=== PATIENT | female | born 1935 | race Caucasian/White ===

== ENCOUNTER 2019-10-05 08:51 | Day surgery (SDC) | payer MEDICARE ==
[~2019-10-05 08:51] MED LIST: Acetaminophen TAB* 325 MG PO PRN
[2019-10-05] MEDS ORDERED: Propofol* 10 MG/ML 20 ML BTL ONE (09:21)
[2019-10-05 10:36] VITALS: BP 144/76
[2019-10-05] MEDS ORDERED: acetaZOLAMIDE TAB* 250 MG ONE (11:09)
[2019-10-05] MEDS ORDERED: Neomycin/Polymy/Dex OPHTH.OIN* 3.5 GM ONE (11:09)
[2019-10-05] MEDS ORDERED: Tropicamide 1% OPTH.SOL* BTL ONE (11:09)
[2019-10-05] MEDS ORDERED: Phenylephrine OPHTH SOL 2.5%* 2 ML ONE (11:09)
[2019-10-05] MEDS ORDERED: Tetracaine 0.5% OPTH.SOL 4 ML* 1 DROP BTL ONE (11:09)
[2019-10-05] MEDS ORDERED: Cyclopentolate 1% OPTH.SOL* 2 ML BTL ONE (11:09)
[2019-10-05] MEDS ORDERED: Lidocaine 1% MPF ** 5 ML VIAL ONE (11:09)
[2019-10-05] MEDS ORDERED: Povidone Iodine 5% OPTH* 30 ML BTL ONE (11:09)
[2019-10-05] MEDS ORDERED: Ketorolac 0.5% OPHTH (NF) 0.5 % 5 ML BTL ONE (11:09)
[2019-10-05] MEDS ORDERED: Buffered Lidocaine 1% SYRIN* 1 ML/SYRINGE INTRADERM ONE (16:58)
--- NOTE | 2019-10-05 20:40 | OP ---
DATE OF OPERATION: 10/05/19 - [facility] DATE OF : 35 SURGEON: Huseyin Paz MD ANESTHESIA: Monitored anesthesia care. PRE-OP DIAGNOSIS: Cataract, right eye. POST-OP DIAGNOSIS: Cataract, right eye with floppy iris syndrome. OPERATIVE PROCEDURE: Extracapsular cataract extraction of the right eye with intraocular lens implant. IMPLANT: SN60WF 21.5 diopter lens to the right eye. COMPLICATIONS: None. DESCRIPTION OF PROCEDURE: The patient was given phenylephrine 2.5% and cyclopentolate 1% eye drops to the operative eye in the preoperative area. The patient was taken to the operating room where a time-out was taken to identify the correct patient, site, and side of surgery. The patient's right eye was prepped and draped in the usual sterile fashion with 5% Betadine. A second time -out was taken to verify the correct patient, side, and site of surgery and correct lens implant. A lid speculum was placed to the right eye. A 1-mm paracentesis blade was used to make a clear corneal incision in the superotemporal position. Preservative-free 1% lidocaine was injected into the anterior chamber. DisCoVisc was then injected into the anterior chamber. A 2.75-mm keratome blade was used to make a triplanar incision at the inferotemporal position. A Malyugin ring was then inserted due to evidence of floppy iris syndrome and poor pupil dilation. A cystotome initiated a capsulorrhexis, which was completed with Utrata forceps in a continuous and curvilinear manner. Hydrodissection of the lens was performed with BSS on a cannula. The lens could be spun in the capsular bag. The phacoemulsification handpiece was used with a cheing-lab-lttiwty technique to remove the nucleus. The I/A handpiece then removed the residual cortical lens material. DisCoVisc was injected to inflate the capsular bag. The planned SN60WF 21.5 diopter lens was injected into the capsular bag. The Malyugin ring was then removed from the anterior chamber. The residual DisCoVisc was removed from the eye with the I/A handpiece. The corneal incisions were hydrated and no leaks occurred at physiologic pressure around 20 mmHg per palpation. The lid speculum was removed and drapes were removed. Maxitrol ointment was placed on the surface of the operative eye. An adhesive patch and shield was then placed on the operative eye. The patient was taken to the postoperative area in stable condition. [id number]/[facility] #: [id number] [place]
== END 2019-10-05 10:48 | disposition home or self-care (01) ==
LOC: OREAST 08:51
PROVIDERS: ATTEND Student in an Organized Health Care Education/Training Program
DX: H25.11 Age-related nuclear cataract, right eye (principal); Z95.2 Presence of prosthetic heart valve; Z87.891 Personal history of nicotine dependence; Z85.038 Personal history of other malignant neoplasm of large intestine; M19.90 Unspecified osteoarthritis, unspecified site; F41.8 Other specified anxiety disorders
CPT/HCPCS: A9270-GY; J2704; V2632

== ENCOUNTER 2019-10-19 08:21 | Day surgery (SDC) | payer MEDICARE ==
[2019-10-19] MEDS ORDERED: Midazolam* 1 MG/ML 2 ML VIAL (2 MG) ONE (09:04)
[2019-10-19] MEDS ORDERED: Propofol* 10 MG/ML 20 ML BTL ONE (09:35)
[2019-10-19 10:22] VITALS: BP 141/76
[2019-10-19] MEDS ORDERED: Tropicamide 1% OPTH.SOL* BTL ONE (11:35)
[2019-10-19] MEDS ORDERED: Tetracaine 0.5% OPTH.SOL 4 ML* 1 DROP BTL ONE (11:35)
[2019-10-19] MEDS ORDERED: Ketorolac 0.5% OPHTH (NF) 0.5 % 5 ML BTL ONE (11:35)
[2019-10-19] MEDS ORDERED: Neomycin/Polymy/Dex OPHTH.OIN* 3.5 GM ONE (11:35)
[2019-10-19] MEDS ORDERED: acetaZOLAMIDE TAB* 250 MG ONE (11:35)
[2019-10-19] MEDS ORDERED: Phenylephrine OPHTH SOL 2.5%* 2 ML ONE (11:35)
[2019-10-19] MEDS ORDERED: Lidocaine 1% MPF ** 5 ML VIAL ONE (11:35)
[2019-10-19] MEDS ORDERED: Cyclopentolate 1% OPTH.SOL* 2 ML BTL ONE (11:35)
[2019-10-19] MEDS ORDERED: Povidone Iodine 5% OPTH* 30 ML BTL ONE (11:35)
--- NOTE | 2019-10-19 18:24 | OP ---
DATE OF OPERATION: 10/19/19 - [facility] DATE OF : 35 SURGEON: Huseyin Paz MD ANESTHESIA: Monitored anesthesia care. PREOPERATIVE DIAGNOSIS: Cataract, left eye with floppy iris syndrome. POSTOPERATIVE DIAGNOSIS: Cataract, left eye with floppy iris syndrome. OPERATIVE PROCEDURE: Extracapsular cataract extraction of the left eye with intraocular lens implant. IMPLANTS: SN60WF 21.5 diopter lens to the left eye. COMPLICATIONS: None. DESCRIPTION OF PROCEDURE: The patient was given phenylephrine 2.5% and cyclopentolate 1% eye drops to the operative eye in the preoperative area. The patient was taken to the operating room where a time-out was taken to identify the correct patient, site, and side of surgery. The patient's left eye was prepped and draped in the usual sterile fashion with 5% Betadine. A second time -out was taken to verify the correct patient, side, and site of surgery and correct lens implant. A lid speculum was placed to the left eye. A 1 mm paracentesis blade was used to make a clear corneal incision in the inferotemporal position. Preservative-free 1% lidocaine was injected into the anterior chamber. DisCoVisc was then injected into the anterior chamber. A 2.75 mm keratome blade was used to make a triplanar incision at the superotemporal position. A Malyugin ring was then inserted due to evidence of floppy iris syndrome. A cystotome initiated a capsulorrhexis, which was completed with Utrata forceps in a continuous and curvilinear manner. Hydrodissection of the lens was performed with BSS on a cannula. The lens could be spun in a capsular bag. The phacoemulsification handpiece was used with a pemgzj-zvz-upgcijt technique to remove the nucleus. The I/A handpiece then removed the residual cortical lens material. DisCoVisc was injected to inflate the capsular bag. The planned SN60WF 21.5 diopter lens was then injected into the capsular bag. The residual DisCoVisc was removed from the eye with the I/A handpiece. The corneal incisions were hydrated and no leaks occurred at physiologic pressure around 20 mmHg per palpation. The lid speculum was removed and drapes were removed. Maxitrol ointment was placed to the surface of the operative eye. An adhesive patch and shield was then placed on the operative eye. The patient was taken to the postoperative area in stable condition. [id number]/[facility] #: [id number] [place]
== END 2019-10-19 10:28 | disposition home or self-care (01) ==
LOC: OREAST 08:21
PROVIDERS: ATTEND Student in an Organized Health Care Education/Training Program
DX: H25.12 Age-related nuclear cataract, left eye (principal); H21.81 Floppy iris syndrome; Z87.891 Personal history of nicotine dependence; F41.8 Other specified anxiety disorders; M19.90 Unspecified osteoarthritis, unspecified site; Z85.038 Personal history of other malignant neoplasm of large intestine
CPT/HCPCS: A9270-GY; J2250; J2704; V2632

== ENCOUNTER 2023-09-30 15:26 | Observation (INO) ==
[2023-09-30 15:54] LABS: ABS Basophils 0.1 10^3/uL (0.0-0.1); ABS Lymphocytes 1.1 10^3/uL (1.0-4.8); ABS Monocytes 0.6 10^3/uL (0.0-0.9); ABS Neutrophils 3.8 10^3/uL (1.5-7.6); Eosinophil % 0.7 %; Hematocrit 41.7 % (35-45); Hemoglobin 14.4 g/dL (11.5-14.3); Mean Corpuscular Hemoglobin 31.6 pg (27-33); Mean Corpuscular Hgb Conc 34.5 g/dL (31-36); Mean Corpuscular Volume 91.4 fL (80-97); Mean Platelet Volume 8.2 fL (7.5-11.2); Nucleated Red Blood Cells % 0.1 %/100WBC (0.0-0.8); Platelet Count 196 10^3/uL (150-450); Red Blood Count 4.56 10^6/uL (3.63-4.92); Red Cell Distribution Width 13.9 % (12-17); White Blood Count 5.6 10^3/uL (3.8-11.8)
[2023-09-30 16:07] LABS: INR 1.07 (0.83-1.13)
[2023-09-30 16:49] LABS: High Sens Troponin Baseline 7 pg/mL (<15)
[2023-09-30 16:53] LABS: ALT 10 U/L (7-52); Albumin/Globulin Ratio 1.4 (1-3); Alkaline Phosphatase 75 U/L (35-149); Anion Gap 6 mmol/L (2-16); Blood Urea Nitrogen 14 mg/dL (6-24); CO2 Carbon Dioxide 29 mmol/L (22-32); Calcium 9.1 mg/dL (8.6-10.3); Chloride 103 mmol/L (101-111); Creatinine, Serum 0.93 mg/dL (0.51-0.95); Globulin 2.8 g/dL (2-4); Glucose 97 mg/dL (70-100); Sodium 138 mmol/L (135-145); Total Bilirubin 0.5 mg/dL (0.2-1.0); Total Protein 6.8 g/dL (6.4-8.9); eGFR CKD-EPI 59.1 (>60)
[2023-09-30 17:19] LABS: High Sensitivity Troponin 1 Hr 8 pg/mL (<15)
[2023-09-30 17:38] LABS: Magnesium 2.1 mg/dL (1.9-2.7)
[2023-09-30 17:47] LABS: TSH Ultra Thyroid Stim Horm 3.53 mcIU/mL (0.34-5.60)
[2023-09-30] MEDS ORDERED: Enoxaparin 40 MG/0.4 ML SYR SUBCUT SCH (21:00)
[2023-09-30 23:07] LABS: Potassium Redraw 3.8 mmol/L (3.5-5.0)
[2023-10-01 06:42] LABS: Calcium 9.2 mg/dL (8.6-10.3); Creatinine, Serum 0.91 mg/dL (0.51-0.95); Potassium 3.7 mmol/L (3.5-5.0); eGFR CKD-EPI 60.7 (>60)
[2023-10-01 13:47] VITALS: BP 121/78
[2023-10-01 13:59] LABS: Rapid COVID-19 Molecular Undetected (Undetected)
== END 2023-10-01 11:40 ==
LOC: ED 15:26 → EDHOLD 15:26 → SUATTDRO 18:52 → MEDTELE 21:27
PROVIDERS: ADMIT Internal Medicine; ATTEND Internal Medicine